=== PATIENT | female | born 1990 | race Caucasian/White ===

== ENCOUNTER 2024-12-27 08:32 | Emergency (ER) | payer BC, MEDICAID ==
[2024-12-27 08:38] VITALS: BP 115/88; PULSE 83
[2024-12-27] MEDS: Tetracaine HCl/PF 0.5% 4 ML Bottle EYELF ONE (08:48)
[2024-12-27] MEDS: Distilled Water Ophth Irrig Soln 120 ML Bottle ONE (08:52)
[2024-12-27] MEDS: Distilled Water Ophth Irrig Soln 120 ML Bottle EYELF ONE (08:58)
== END 2024-12-27 09:20 | disposition home or self-care (01) ==
LOC: LL.ED 08:32
DX: S05.02XA Injury of conjunctiva and corneal abrasion without foreign body, left eye, initial encounter (principal); Z88.0 Allergy status to penicillin; Z79.899 Other long term (current) drug therapy; X58.XXXA Exposure to other specified factors, initial encounter; Y93.89 Activity, other specified
CPT/HCPCS: 99283; J3490